=== PATIENT | male | born 1995 | race Caucasian/White ===

== ENCOUNTER 2016-11-10 15:16 | Emergency (ER) | payer BC ==
[2016-11-10 15:32] VITALS: BP 129/71
--- NOTE | 2016-11-10 16:20 | EDM.PDOC ---
ED HPI GENERAL MEDICAL PROBLEM - General Chief Complaint: ENT Problem Stated Complaint: SORE THROAT [id number] Time Seen by Provider: 11/10/16 15:55 Source of Information: Reports: Patient History Limitations: Reports: No Limitations - History of Present Illness INITIAL COMMENTS - FREE TEXT/NARRATIVE: Patient has sorethroat since this am. no fever/ chills. Onset: Today Improves with: Reports: None Worsens with: Reports: None - Related Data Allergies Allergy/AdvReac Type Severity Reaction Status Date / Time amoxicillin Allergy Rash Verified 02/01/15 23:23 Home Meds: Home Meds . [No Known Home Meds] 11/10/16 [History] Past Medical History - Past Health History Medical/Surgical History: Denies Medical/Surgical History - Past Surgical History Musculoskeletal Surgical History: Reports: Other (See Below) Social & Family History - Tobacco Use Smoking Status *Q: Never Smoker - Alcohol Use Days Per Week of Alcohol Use: 2 Number of Drinks Per Day: 2 Total Drinks Per Week: 4 - Recreational Drug Use Recreational Drug Use: No ED ROS ENT - Review of Systems Review Of Systems: See Below Constitutional: Reports: No Symptoms HEENT: Reports: Throat Swelling Respiratory: Reports: No Symptoms Endocrine: Reports: No Symptoms Skin: Reports: No Symptoms Neurological: Reports: No Symptoms Hematologic/Lymphatic: Reports: Swollen Glands (anterior cervical lymphadenopathy) ED EXAM, ENT - Physical Exam Exam: See Below Exam Limited By: No Limitations General Appearance: Alert, WD/WN, No Apparent Distress Ears: Normal External Exam, Normal Canal, Hearing Grossly Normal, Normal TMs Nose: Normal Inspection, Normal Mucousa, No Blood Mouth/Throat: Normal Gums, Normal Lips, Tonsillar Erythema. No: Muffled Voice, Throat Swelling, Uvular Deviation, Uvular Edema Head: Atraumatic, Normocephalic Neck: Lymphadenopathy (L), Lymphadenopathy (R) Course - Vital Signs Last Recorded V/S: Last Vital Signs Temp 98.0 F 11/10/16 15:31 Pulse 103 H 11/10/16 15:31 Resp 18 11/10/16 15:31 BP 129/71 11/10/16 15:31 Pulse Ox 96 11/10/16 15:31 - Orders/Labs/Meds Orders: Active Orders 24 hr Category Date Time Status CULTURE STREP A CONFIRMATION [RM] Stat Lab 05/29/17 15:25 Results STREP SCRN A RAPID W CULT CONF [RM] Stat Lab 11/10/16 15:25 Results Departure - Departure Time of Disposition: 16:17 Disposition: Home, Self-Care 01 Condition: good Clinical Impression: Cervical lymphadenopathy Pharyngitis Qualifiers: Pharyngitis/tonsillitis etiology: unspecified etiology Qualified Code(s): J02.9 - Acute pharyngitis, unspecified - Discharge Information Instructions: Sore Throat Forms: ED Department Discharge Additional Instructions: Use cepacol cough lozenges or chloroseptic throat spray for pain Motrin and tylenol as well for pain Tomorrow fill Bromfed and use as directed. See PCP in 3-5 days if still painful for Monospot. - My Orders Last 24 Hours: My Active Orders 11/10/16 15:25 CULTURE STREP A CONFIRMATION [RM] Stat STREP SCRN A RAPID W CULT CONF [RM] Stat - Assessment/Plan Last 24 Hours: My Active Orders 11/10/16 15:25 CULTURE STREP A CONFIRMATION [RM] Stat STREP SCRN A RAPID W CULT CONF [RM] Stat
== END 2016-11-10 16:29 | disposition home or self-care (01) ==
LOC: DL.ED 15:16
DX: J02.9 Acute pharyngitis, unspecified (principal); R59.0 Localized enlarged lymph nodes; Z88.1 Allergy status to other antibiotic agents
CPT/HCPCS: 87081; 87430; 99283